=== PATIENT | male | born 1960 | race Caucasian/White ===

== ENCOUNTER 2020-08-25 15:27 | Emergency (ER) | payer OTHER ==
[~2020-08-25] VITALS: Ht 165.1 cm; Wt 99.8 kg
--- NOTE | 2020-08-25 15:27 | NUR ---
PATIENT ROXANN BLS TO ER BED 04
[2020-08-25 15:30] VITALS: BP 146/80
--- NOTE | 2020-08-25 15:48 | NUR ---
59 YEAR OLD MALE CAME IN FOR CHEST PAIN X 1 HOUR. PT STATES THAT HE WAS IN A PHARMACY INSIDE OF [place] AND THAT THE DOCTOR GAVE HIM A NITRO TAB AFTER. PT STATES HE NO LONGER HAS CHEST PAIN. PT DENIES SOB, DENIES N/V/D. PT AOX4, BREATHING EVEN AND UNLABORED, SKIN WARM AND DRY. BED IN LOWEST POSITION, LOCKED, BED RAIL UPX1. PMH - HTN, DM2, ANXIETY ALLERGIES - PCN
[2020-08-25 16:27] LABS: BASOPHILS # (AUTO) 0.1 K/uL (0.00-0.22); BASOPHILS % (AUTO) 0.6 % (0.0-2.0); EOSINOPHILS # (AUTO) 0.9 K/uL (0-0.4); EOSINOPHILS % (AUTO) 7.8 % (0.0-4.0); HEMATOCRIT 42.7 % (36-52); HEMOGLOBIN 14.7 g/dL (12.0-18.0); LYMPHOCYTES # (AUTO) 2.7 K/uL (2.0-11.5); LYMPHOCYTES % (AUTO) 22.6 % (20.5-51.1); MEAN CORPUSCULAR HEMOGLOBIN 29 pg (27-31); MEAN CORPUSCULAR HGB CONC 35 g/dL (33-37); MEAN CORPUSCULAR VOLUME 83.9 fL (80-94); MONOCYTES # (AUTO) 0.6 K/uL (0.8-1.0); MONOCYTES % (AUTO) 5.1 % (1.7-9.3); NEUTROPHILS # (AUTO) 7.6 K/uL (1.8-7.7); NEUTROPHILS % (AUTO) 63.9 % (42.2-75.2); PLATELET COUNT (AUTO) 241 K/uL (140-450); RED BLOOD CELL COUNT(AUTO) 5.09 MIL/uL (4.20-6.10); RED CELL DISTRIBUTION WIDTH 13.5 % (11.6-13.7); WHITE BLOOD COUNT (AUTO) 11.9 K/uL (4.8-10.8)
[2020-08-25 16:50] LABS: ALBUMIN 3.9 g/dL (3.4-5.0); ANION GAP 11.8 (8-16); CARBON DIOXIDE 29.8 mmol/L (21-32); CREATININE 1.1 mg/dL (0.6-1.3); POTASSIUM 3.6 mmol/L (3.5-5.1); TOTAL BILIRUBIN 0.5 mg/dL (0.0-1.0)
[2020-08-25] MEDS ORDERED: NACL 0.9% 1,000 ML IV ONE (17:00)
--- NOTE | 2020-08-25 17:00 | NUR ---
PT ALERT AND AWAKE, BREATHING EVEN AND UNLABORED. PT STATES NO PAIN STILL
--- NOTE | 2020-08-25 18:00 | NUR ---
PT ALERT AND AWAKE, BREATHING EVEN AND UNLABORED. PT STATES NO PAIN STILL
[2020-08-25 18:26] VITALS: BP 133/63
--- NOTE | 2020-08-25 18:54 | NUR ---
REPORT GIVEN TO ROSY MARIN, TRANSFER OF CARE AT THIS TIME
--- NOTE | 2020-08-25 19:18 | NUR ---
REPORT RECEIVED FROM EVAN MARIN
--- NOTE | 2020-08-26 19:58 | NUR ---
LATE ENTRY----- NS BOLUS DISCONTINUED AT 1830
== END 2020-08-25 20:36 | disposition left against medical advice (07) ==
LOC: MED 15:27
DX: R07.9 Chest pain, unspecified (principal); E11.9 Type 2 diabetes mellitus without complications; F41.9 Anxiety disorder, unspecified; I10 Essential (primary) hypertension; Z88.0 Allergy status to penicillin; Z20.828 Contact with and (suspected) exposure to other viral communicable diseases
CPT/HCPCS: 36415; 71045; 80053; 84484; 85025; 87426; 93005; 96360; 99285; J7030; 96361